=== PATIENT | male | born 1985 | race Caucasian/White ===

== ENCOUNTER → 2016-07-13 | Outpatient (CLI) | payer BC ==
--- NOTE | 2016-07-13 09:50 | DIAGNOSTIC IMAGING REPORT ---
MRI OF LUMBAR SPINE WITHOUT IV CONTRAST CLINICAL HISTORY: Low back pain. Lumbar radiculopathy. COMPARISON STUDY: No priors. TECHNIQUE: MRI of lumbar spine is performed utilizing various T1 and T2-weighted sequences in the axial and sagittal planes. IV contrast was not administered for this examination. FINDINGS: Lumbar spine: Vertebral body height and alignment are maintained throughout the lumbar spine. Marrow signal intensity is homogeneous. The transverse and spinous processes are intact as imaged. There is no evidence of spondylolysis. No destructive bony lesion is seen. Intervertebral discs: Degenerative disc desiccation and mild loss of height is seen at L4-L5 and L5-S1. The remaining disc spaces appear preserved. Spinal cord: The partially imaged spinal cord is normal in morphology and signal intensity. The conus visualized terminates at the L1-L2 interspace. The nerve roots of the cauda equina are normal in morphology and signal intensity. L1-L2: Unremarkable. L2-L3: Unremarkable. L3-L4: Unremarkable. L4-L5: Minimal disc bulge is noted. The central canal and neural foramina are patent. Mild facet arthropathy is of no consequence. L5-S1: There is a disc herniation eccentric to the right with annular fissure. There is no significant acquired compromise of the central canal. The disc bulge impinges on the transiting right-sided sacral nerve roots. Sacrum: Visualized sacrum is normal in morphology and signal intensity. Soft tissues: The paraspinous soft tissues are within normal limits. The partially imaged retroperitoneal structures are grossly normal but incompletely assessed. IMPRESSION: 1. There is a disc herniation eccentric to the right at L5-S1. This impinges on the transiting right-sided sacral nerve roots. 2. No significant spondylotic change at the remaining lumbar levels. See discussion for detailed level by level analysis. 3. No destructive bony process is seen. Dictated: 07/13/2016 9:06 AM Transcribed: 07/13/2016 9:50 AM [facility] Electronically signed by: Neto Anthony M.D. 07/13/2016 10:05 AM Dictated Date/Time: 07/13/2016 9:06 AM
== END | disposition home or self-care (01) ==
LOC: C.MRIBC 07:56
PROVIDERS: ATTEND Physician Assistant
DX: M54.16 Radiculopathy, lumbar region (principal)

== ENCOUNTER → 2016-11-05 | Outpatient (CLI) | payer BC ==
[2016-11-05 12:19] LABS: BASO % 0.5 %; BASO ABS # 0.04 K/uL (0-0.2); COMPLETE YES; EOS % 1.8 %; HEMATOCRIT 44.6 % (42-52); IG% 0.3 %; LYMPH % 38.1 %; LYMPH ABS # 2.97 K/uL (1.2-3.4); MEAN CELL VOLUME 87.1 fL (80-100); MEAN CORPUSCULAR HEMOGLOBIN 28.9 pg (25-34); MEAN CORPUSCULAR HGB CONC 33.2 g/dl (32-36); MEAN PLATELET VOLUME 11.3 fL (7.4-10.4); MONO % 6.8 %; NEUT % 52.5 %; PLATELET COUNT 292 K/uL (130-400); RED BLOOD COUNT 5.12 M/uL (4.7-6.1); WHITE BLOOD COUNT 7.79 K/uL (4.8-10.8)
[2016-11-05 12:56] LABS: ALB/GLOB RATIO 1.1 (0.9-2); ALT/SGPT 30 U/L (12-78); AST/SGOT 17 U/L (15-37); BLOOD UREA NITROGEN 22 mg/dl (7-18); CALCIUM 9.3 mg/dl (8.5-10.1); CARBON DIOXIDE 24 mmol/L (21-32); CHLORIDE 106 mmol/L (98-107); CHOLESTEROL 159 mg/dl (0-200); CREATININE 0.96 mg/dl (0.60-1.40); GLUCOSE 94 mg/dl (70-99); POTASSIUM 4.1 mmol/L (3.5-5.1); SODIUM 139 mmol/L (136-145); TRIGLYCERIDES 86 mg/dl (0-150); VERY LOW DENSITY LIPOPROT CALC 17 mg/dl
[2016-11-05 13:06] LABS: ALKALINE PHOSPHATASE 46 U/L (45-117); CHOLESTEROL/HDL RATIO 3.6; HDL CHOLESTEROL 44 mg/dl; LDL CHOLESTEROL CALCULATED 98 mg/dl; THYROID STIMULATING HORMONE 0.439 uIu/ml (0.300-4.500)
== END | disposition home or self-care (01) ==
LOC: C.LABPBG 09:35
PROVIDERS: ATTEND Internal Medicine
DX: Z13.220 Encounter for screening for lipoid disorders (principal)